=== PATIENT | female | born 1955 | race African-American/Black ===

== ENCOUNTER 2018-11-24 21:08 | Emergency (ER) | payer OTHER ==
[~2018-11-24] VITALS: Ht 157.5 cm; Wt 77.1 kg
[~2018-11-24 21:08] MED LIST: CLON0.1T PO; GABA300C11 GT; LOSA-49 PO; METO25TA5 PO; MULT-654 OR; NIFE60TA59 PO; SERT-274 PO; SEVE800T PO; SUCR1TAB38 OR
[2018-11-24 21:12] VITALS: BP 204/87
[2018-11-24] MEDS ORDERED: cloNIDine HCL 0.1 MG TAB ONE (21:19)
[2018-11-24] MEDS ORDERED: cloNIDine HCL 0.1 MG TAB PO ONE (21:30)
== END 2018-11-25 00:40 | disposition left against medical advice (07) ==
LOC: EDBD 21:08 → ER 21:08
DX: I10 Essential (primary) hypertension (principal); Z53.21 Procedure and treatment not carried out due to patient leaving prior to being seen by health care provider
CPT/HCPCS: 93005